=== PATIENT | male | born 1955 | race Caucasian/White ===

== ENCOUNTER 2019-04-15 08:20 | Emergency (ER) | payer SELFPAY ==
[~2019-04-15] VITALS: Ht 177.8 cm; Wt 90.9 kg
[~2019-04-15 08:20] MED LIST: AMLO-147 PO; ASPI-903 PO; ATOR10TA65 PO; GLIP5TAB13 PO; LOSA50TA14 PO; METF100010 PO
[2019-04-15 08:29] VITALS: BP 157/90; PULSE 68; RESP 18; Ht 177.8 cm; Wt 90.9 kg
--- NOTE | 2019-04-15 12:24 | ERD ---
ER Documentation Chief Complaint Chief Complaint chest pain x 1 week, pressure/tightness stabing pain ROS All systems reviewed and are negative except as per history of present illness. Physical Exam Vitals Vital Signs Date Temp Pulse Resp B/P (MAP) Pulse Ox O2 O2 Flow FiO2 Time Delivery Rate 04/15/19 98.2 68 18 157/90 98 08:29 (112) Physical Exam Const: No acute distress Head: Atraumatic Eyes: Normal Conjunctiva ENT: Normal External Ears, Nose and Mouth. Neck: Full range of motion. No meningismus. Resp: Clear to auscultation bilaterally Cardio: Regular rate and rhythm, no murmurs Abd: Soft, non tender, non distended. Normal bowel sounds Skin: No petechiae or rashes Back: No midline or flank tenderness Ext: No cyanosis, or edema Neur: Awake and alert Psych: Normal Mood and Affect SHAW FORD MD Apr 15, 2019 12:24
== END 2019-04-15 12:30 | disposition left against medical advice (07) ==
LOC: E/R 08:20
DX: Z53.21 Procedure and treatment not carried out due to patient leaving prior to being seen by health care provider (principal)
CPT/HCPCS: 93005

== ENCOUNTER 2019-04-16 06:55 | Observation (INO) | payer OTHER ==
[~2019-04-16] VITALS: Ht 190.5 cm; Wt 98.0 kg
[2019-04-16 06:57] VITALS: Ht 190.5 cm; Wt 98.0 kg
[2019-04-16] MEDS ORDERED: ASPIRIN 325 MG TAB PO STA (07:13)
--- NOTE | 2019-04-16 08:08 | ERD ---
ER Documentation Chief Complaint Chief Complaint here yesterday lwbs , c/o same cp HPI 64-year-old male presents the emergency department complaining of chest pain. Patient states that he is been having a nonspecific chest pain for approximately a week now. It seems to be getting worse and worse in severity. He reports the pain is nonspecific, localized in the center part of his chest and associated with no fevers, chills, cough, hemoptysis or sputum production. The pain is nonradiating and nonspecific and described as moderate to severe at this time. ROS All systems reviewed and are negative except as per history of present illness. Allergies Allergies: Coded Allergies: No Known Allergy (Unverified , 04/16/19) PMhx/Soc Medical and Surgical Hx: pt denies Surgical Hx Hx Miscellaneous Medical Probl: Yes (HTN, DM, HIGH CHOLESTEROL) Hx Alcohol Use: No Hx Substance Use: No Hx Tobacco Use: No Smoking Status: Never smoker FmHx Family history of diabetes, no obvious family history of heart disease Physical Exam Vitals Vital Signs Date Temp Pulse Resp B/P (MAP) Pulse Ox O2 O2 Flow FiO2 Time Delivery Rate 04/16/19 Nasal 2 07:25 Cannula 04/16/19 98.1 67 18 157/96 99 06:57 (116) Physical Exam GENERAL: The patient is well developed and appropriate for usual state of health in no apparent distress HEENT: Pupils equal, round, and reactive to light. EOMI. There is no scleral icterus. NECK: C-spine is soft and supple, there is no meningismus. There is no cervical lymphadenopathy. LUNGS: Clear to auscultation bilaterally. There are no rales, wheezes or rhonchi. HEART: Regular rate and rhythm, no murmurs, clicks, rubs or gallops. ABDOMEN: Soft, non-tender, non-distended. There are bowel sounds in all four quadrants. No rebound or guarding. EXTREMITIES: There is no peripheral cyanosis or edema. No focal swelling or erythema. NEURO: The patient moves all four extremities with 5/5 strength. Cranial nerves II - XII are intact. Normal gait. Alert and oriented SKIN: There is no apparent rash or petechiae. HEME/LYMPHATIC: There is no evidence of excessive bruising or lymphedema. PSYCHIATRIC: The patient does not appear anxious or depressed. Result Diagram: 04/16/19 0720 04/16/19 0720 Results 24 hrs Laboratory Tests Test 04/16/19 07:20 White Blood Count 3.4 10^3/ul Red Blood Count 4.45 10^6/ul Hemoglobin 13.6 g/dl Hematocrit 39.3 % Mean Corpuscular Volume 88.3 fl Mean Corpuscular Hemoglobin 30.6 pg Mean Corpuscular Hemoglobin Concent 34.6 g/dl Red Cell Distribution Width 12.0 % Platelet Count 209 10^3/UL Mean Platelet Volume 10.5 fl Immature Granulocytes % 0.600 % Neutrophils % 45.6 % Lymphocytes % 44.2 % Monocytes % 7.8 % Eosinophils % 1.2 % Basophils % 0.6 % Nucleated Red Blood Cells % 0.0 /100WBC Immature Granulocytes # 0.020 10^3/ul Neutrophils # 1.6 10^3/ul Lymphocytes # 1.5 10^3/ul Monocytes # 0.3 10^3/ul Eosinophils # 0.0 10^3/ul Basophils # 0.0 10^3/ul Nucleated Red Blood Cells # 0.0 10^3/ul Sodium Level 135 mmol/L Potassium Level 4.3 mmol/L Chloride Level 102 mmol/L Carbon Dioxide Level 25 mmol/L Anion Gap 8 Blood Urea Nitrogen 10 mg/dl Creatinine 0.72 mg/dl Est Glomerular Filtrat Rate mL/min > 60 mL/min Glucose Level 283 mg/dl Calcium Level 8.8 mg/dl Total Bilirubin 0.4 mg/dl Direct Bilirubin 0.00 mg/dl Indirect Bilirubin 0.4 mg/dl Aspartate Amino Transf (AST/SGOT) 27 IU/L Alanine Aminotransferase (ALT/SGPT) 22 IU/L Alkaline Phosphatase 84 IU/L Troponin I < 0.012 ng/ml Total Protein 7.1 g/dl Albumin 3.9 g/dl Globulin 3.20 g/dl Albumin/Globulin Ratio 1.21 Current Medications Medications Dose Sig/Luis Felipe Start Time Status Last (Trade) Ordered Route PRN Stop Time Admin Dose Reason Admin Aspirin 325 mg ONCE STAT 04/16/19 DC 04/16/19 (Aspirin) PO 07:13 04/16/19 07:23 07:15 Procedures/MDM Patient was taken to a room, seen and evaluated. Comfort measures were initiated. Diagnostic tests were ordered and reviewed. 3 LEAD RHYTHM STRIP: Normal sinus rhythm without ectopy EK lead EKG reviewed by myself: Normal Sinus Rhythm Normal [place] and intervals No ST elevation, depression, or T wave inversion Impression: Normal EKG RADIOLOGY: Reviewed with the radiologist CONSULTATION: Hospitalist was notified for admission REEVALUATION: 08: Initial diagnostic tests were appreciated including troponin and discussed with the patient. Decision was made for observation. MEDICAL DECISION MAKING: Patient presents with chest pain of uncertain etiology. Differential diagnosis considered includes acute myocardial infarction, pulmo nary embolism, as well as vascular and pulmonary concerns. I have reviewed the patients clinical risk factors, EKG, lab studies and imaging. At this time, patient's work-up shows no obvious ischemic changes and a negative troponin, which is reassuring. However, given his multiple risk factors and HEART score, patient will be admitted for further diagnostic evaluation and testing. Departure Diagnosis: Primary Impression: Chest pain Condition: DEEJAY Claros Apr 16, 2019 08:08
[2019-04-16] MEDS ORDERED: ONDANSETRON 4 MG INJ IV PRN ×2 (08:30→09:30)
[2019-04-16] MEDS ORDERED: ACETAMINOPHEN 325 MG TAB PO PRN ×2 (08:30→09:30)
[2019-04-16] MEDS ORDERED: NITROGLYCERIN (SL) 0.4 MG TAB SL PRN (09:30)
[2019-04-16] MEDS ORDERED: DOCUSATE SODIUM 100 MG CAP PO PRN (09:30)
[2019-04-16] MEDS ORDERED: NACL 0.9% 3 ML SYG IV SCH (09:30)
[2019-04-16] MEDS ORDERED: morphine 2 MG INJ IV PRN (09:30)
[2019-04-16] MEDS ORDERED: GLUCOSE GEL 15 GRAM TUBE BUCCAL PRN (10:00)
[2019-04-16] MEDS ORDERED: DEXTROSE 50% 50 ML SYRINGE IV PRN ×2 (10:00)
[2019-04-16] MEDS ORDERED: GLUCOSE GEL 15 GRAM TUBE PO PRN ×2 (10:00)
[2019-04-16] MEDS ORDERED: GLUCAGON 1 MG INJ IM PRN (10:00)
[2019-04-16] MEDS: LOSARTAN 50 MG TAB PO SCH (10:05)
[2019-04-16] MEDS: AMLODIPINE 10 MG TAB PO SCH (10:05)
[2019-04-16] MEDS: INSULIN GLARGINE [LANTus] (100 UNITS/ML) SYG SC SCH (11:37)
[2019-04-16] MEDS: INSULIN ASPART [NOVOLOG] 3 ML PEN SC SCH ×5 (11:39→20:46)
--- NOTE | 2019-04-16 11:56 | CONS ---
Assessment/Plan Assessment/Plan Hospital Course (Demo Recall) Chest pain: Likely musculoskeletal by history though no palpable pain. EKG normal and initial trop negative. Doubt cardiac etiology but has CAD risk factors so will evaluate further HTN DM -cardiac CTA. If normal, ok for d/c -f/u echo -continue ASA, lipitor -amlodipine 10mg, losartan 50mg Consultation Date/Type/Reason Admit Date/Time Date of Consultation: Apr 16, 2019 Type of Consult Cardiology Reason for Consultation Chest pain Requesting Provider: OMAIRA MCNEAL NP Date/Time of Note DATE: 04/16/19 TIME: 11:41 Hx of Present Illness 64 yo M with a h/o DM, HTN, who presented with chest pain. He notes that he has been having chest pain for one week straight which he describes as pressure like. The pain is mild and constant and exacerbated only during the motion of sitting from a laying position. Otherwise when he walks or is active he does not have exacerbation. No prior cardiac history. He is generally very active and asymptomatic. He just traveled from [place] and arrived 5 days ago but the symptoms started 1-2 days before he flew here. He does not remember any trauma to his chest or lifting anything heavy at that time but may have been exacerbated by lifting his luggage during his travel. Very mild pinpoint pain right chest wall. per hPI Past Medical History per hPI Home Meds Reported Medications Aspirin* (Aspirin* Chew) 81 Mg Tab.chew, 81 MG PO DAILY, TAB.CHEW 04/16/19 Metformin Hcl* (Metformin Hcl*) 1,000 Mg Tablet, 1000 MG PO BID 04/16/19 Losartan Potassium* (Losartan Potassium*) 50 Mg Tablet, 50 MG PO DAILY, TAB 04/16/19 Amlodipine Besylate* (Amlodipine Besylate*) 10 Mg Tablet, 10 MG PO DAILY 04/16/19 Medications Current Medications Ondansetron HCl (Zofran Inj) 4 mg ER BRIDGE PRN IV NAUSEA/VOMITING; Start 04/16/19 at 08:30; Stop 04/17/19 at 08:29 Acetaminophen (Tylenol Tab) 650 mg ER BRIDGE PRN PO .MILD PAIN 1-3 OR TEMP; Sta rt 04/16/19 at 08:30; Stop 04/17/19 at 08:29 Amlodipine Besylate (Norvasc) 10 mg DAILY PO Last administered on 04/16/19at 10:05; Admin Dose 10 MG; Start 04/16/19 at 09:30 Aspirin (Aspirin) 81 mg DAILY PO ; Start 04/17/19 at 09:00 Losartan Potassium (Cozaar) 50 mg DAILY PO Last administered on 04/16/19at 10:05; Admin Dose 50 MG; Start 04/16/19 at 09:30 IV Flush (NS 3 ml) 3 ml PER PROTOCOL IV ; Start 04/16/19 at 09:30 Ondansetron HCl (Zofran Inj) 4 mg Q6H PRN IV NAUSEA/VOMITING; Start 04/16/19 at 09:30 Acetaminophen (Tylenol Tab) 650 mg Q6H PRN PO .PAIN 1-3 OR TEMP; Start 04/16/19 at 09:30 Morphine Sulfate (morphine) 2 mg Q4H PRN IV .SEVERE PAIN 7-10; Start 04/16/19 at 09:30 Docusate Sodium (Colace) 100 mg Q12H PRN PO .CONSTIPATION; Start 04/16/19 at 09:30 Diagnostic Test (Pha) (Accu-Chek) 1 ea 02 XX ; Start 04/17/19 at 02:00 Insulin Glargine (Lantus) 15 units DAILY@0800 SC ; Start 04/16/19 at 11:00 Insulin Aspart (Novolog Insulin Pen) 5 unit WITH MEALS SC ; Start 04/16/19 at 12:00 Insulin Aspart (Novolog Insulin Pen) NOVOLOG *MILD* ALGORITHM WITH MEALS BEDTIME SC ; Start 04/16/19 at 12:00 Atorvastatin Calcium (Lipitor) 80 mg HS PO ; Start 04/16/19 at 21:00 Nitroglycerin (Nitroglycerin (Sl Tab) 0.4 Mg) 1 tab Q5M PRN SL ANGINA; Start 04/16/19 at 09:30 Miscellaneous Information 1 ea NOTE XX ; Start 04/16/19 at 10:00 Glucose (Glutose) 15 gm Q15M PRN PO DECREASED GLUCOSE; Start 04/16/19 at 10:00 Glucose (Glutose) 22.5 gm Q15M PRN PO DECREASED GLUCOSE; Start 04/16/19 at 10:00 Dextrose (D50w Syringe) 25 ml Q15M PRN IV DECREASED GLUCOSE; Start 04/16/19 at 10:00 Dextrose (D50w Syringe) 50 ml Q15M PRN IV DECREASED GLUCOSE; Start 04/16/19 at 10:00 Glucagon (Glucagen) 1 mg Q15M PRN IM DECREASED GLUCOSE; Start 04/16/19 at 10:00 Glucose (Glutose) 15 gm Q15M PRN BUCCAL DECREASED GLUCOSE; Start 04/16/19 at 10:00 Allergies: Coded Allergies: No Known Allergy (Unverified , 04/16/19) Social History Smoking Status: Never smoker Exam/Review of Systems Vital Signs Vitals Vital Signs Date Temp Pulse Resp B/P (MAP) Pulse Ox O2 O2 Flow FiO2 Time Delivery Rate 04/16/19 56 18 157/92 99 Room Air 09:17 (113) 04/16/19 2 07:25 04/16/19 98.1 06:57 Exam Constitutional: alert, oriented Psych: no complaints, nl mood/affect Neck: supple; No jvd Respiratory: clear to auscultation; No crackles/rales Cardiovascular: regular rate and rhythm; No edema, No systolic murmur Gastrointestinal: soft, non-tender Neurological: nl mental status, nl speech Additional Comments EKG: sinus bradycardia, PAC, no ST changes Labs Result Diagram: 04/16/19 0720 04/16/19 0720 Results 24hrs Laboratory Tests Test 04/16/19 07:20 04/16/19 10:38 04/16/19 11:08 White Blood Count 3.4 L Red Blood Count 4.45 L Hemoglobin 13.6 L Hematocrit 39.3 L Mean Corpuscular Volume 88.3 Mean Corpuscular Hemoglobin 30.6 Mean Corpuscular Hemoglobin Concent 34.6 Red Cell Distribution Width 12.0 Platelet Count 209 Mean Platelet Volume 10.5 H Immature Granulocytes % 0.600 H Neutrophils % 45.6 Lymphocytes % 44.2 Monocytes % 7.8 Eosinophils % 1.2 Basophils % 0.6 Nucleated Red Blood Cells % 0.0 Immature Granulocytes # 0.020 Neutrophils # 1.6 Lymphocytes # 1.5 Monocytes # 0.3 Eosinophils # 0.0 Basophils # 0.0 Nucleated Red Blood Cells # 0.0 Sodium Level 135 Potassium Level 4.3 Chloride Level 102 Carbon Dioxide Level 25 Anion Gap 8 Blood Urea Nitrogen 10 Creatinine 0.72 Est Glomerular Filtrat Rate mL/min > 60 Glucose Level 283 H Calcium Level 8.8 Total Bilirubin 0.4 Direct Bilirubin 0.00 Indirect Bilirubin 0.4 Aspartate Amino Transf (AST/SGOT) 27 Alanine Aminotransferase (ALT/SGPT) 22 Alkaline Phosphatase 84 Troponin I < 0.012 Total Protein 7.1 Albumin 3.9 Globulin 3.20 Albumin/Globulin Ratio 1.21 Hemoglobin A1c 9.7 H Triglycerides Level 81 Cholesterol Level 166 LDL Cholesterol, Calculated 111 HDL Cholesterol 39 Cholesterol/HDL Ratio 4.2 Thyroid Stimulating Hormone (TSH) Pending Bedside Glucose 238 H Medications Medications Current Medications Ondansetron HCl (Zofran Inj) 4 mg ER BRIDGE PRN IV NAUSEA/VOMITING; Start 04/16/19 at 08:30; Stop 04/17/19 at 08:29 Acetaminophen (Tylenol Tab) 650 mg ER BRIDGE PRN PO .MILD PAIN 1-3 OR TEMP; Start 04/16/19 at 08:30; Stop 04/17/19 at 08:29 Amlodipine Besylate (Norvasc) 10 mg DAILY PO Last administered on 04/16/19at 10:05; Admin Dose 10 MG; Start 04/16/19 at 09:30 Aspirin (Aspirin) 81 mg DAILY PO ; Start 04/17/19 at 09:00 Losartan Potassium (Cozaar) 50 mg DAILY PO Last administered on 04/16/19at 10:05; Admin Dose 50 MG; Start 04/16/19 at 09:30 IV Flush (NS 3 ml) 3 ml PER PROTOCOL IV ; Start 04/16/19 at 09:30 Ondansetron HCl (Zofran Inj) 4 mg Q6H PRN IV NAUSEA/VOMITING; Start 04/16/19 at 09:30 Acetaminophen (Tylenol Tab) 650 mg Q6H PRN PO .PAIN 1-3 OR TEMP; Start 04/16/19 at 09:30 Morphine Sulfate (morphine) 2 mg Q4H PRN IV .SEVERE PAIN 7-10; Start 04/16/19 at 09:30 Docusate Sodium (Colace) 100 mg Q12H PRN PO .CONSTIPATION; Start 04/16/19 at 09:30 Diagnostic Test (Pha) (Accu-Chek) 1 ea 02 XX ; Start 04/17/19 at 02:00 Insulin Glargine (Lantus) 15 units DAILY@0800 SC ; Start 04/16/19 at 11:00 Insulin Aspart (Novolog Insulin Pen) 5 unit WITH MEALS SC ; Start 04/16/19 at 12:00 Insulin Aspart (Novolog Insulin Pen) NOVOLOG *MILD* ALGORITHM WITH MEALS BEDTIME SC ; Start 04/16/19 at 12:00 Atorvastatin Calcium (Lipitor) 80 mg HS PO ; Start 04/16/19 at 21:00 Nitroglycerin (Nitroglycerin (Sl Tab) 0.4 Mg) 1 tab Q5M PRN SL ANGINA; Start 04/16/19 at 09:30 Miscellaneous Information 1 ea NOTE XX ; Start 04/16/19 at 10:00 Glucose (Glutose) 15 gm Q15M PRN PO DECREASED GLUCOSE; Start 04/16/19 at 10:00 Glucose (Glutose) 22.5 gm Q15M PRN PO DECREASED GLUCOSE; Start 04/16/19 at 10:00 Dextrose (D50w Syringe) 25 ml Q15M PRN IV DECREASED GLUCOSE; Start 04/16/19 at 10:00 Dextrose (D50w Syringe) 50 ml Q15M PRN IV DECREASED GLUCOSE; Start 04/16/19 at 10:00 Glucagon (Glucagen) 1 mg Q15M PRN IM DECREASED GLUCOSE; Start 04/16/19 at 10:00 Glucose (Glutose) 15 gm Q15M PRN BUCCAL DECREASED GLUCOSE; Start 04/16/19 at 10:00 VASILIY LAWS Apr 16, 2019 11:53
--- NOTE | 2019-04-16 12:09 | RADRPT ---
Echocardiogram Report Patient Name: Bhavin LINARES ID: [id number] : 1955 (64y 1m)Study Date: 04/16/2019 9:31:51 AM Gender: [place] #: [id number] Tech: Akbar Muhammad [facility] Location: [facility] Ref.Physician: OMAIRA MCNEAL Height(Cm): BSA: Weight(Kg): Quality: AdequateOrder Physician: OMAIRA MCNEAL Account #: Procedures: Echocardiographic Report: Transthoracic echocardiogram with complete 2D, M-Mode, and doppler examination. Indications: Chest Pain. Measurements: 2D/M Mode Doppler Measurement Value Normal Range Measurement Value Normal Range LVIDd 2D 4.3 [ 4.2 - 5.8 ] cm AV Peak Doug 1.1 [ 100.0 - 170.0 ] cm/sec LVIDs 2D 2.9 [ 2.5 - 4.0 ] cm AV Peak PG 5.0 [ 2.0 - 9.0 ] mmHg LVPWd 2D 0.9 [ 0.6 - 1.0 ] cm LVOT Peak Doug 0.8 [ 70.0 - 110.0 ] cm/sec IVSd 2D 1.4 [ 0.6 - 1.0 ] cm LVOT Peak PG 2.0 [ 2.0 - 6.0 ] mmHg AoR Diam 2D 2.6 [ 2.6 - 3.4 ] cm MV E Peak Doug 0.5 [ 60.0 - 130.0 ] cm/sec EDV 2D 82.2 [ 62.0 - 150.0 ] ml MV A Peak Doug 0.7 [ 100.0 - 120.0 ] cm/sec ESV 2D 32.8 [ 21.0 - 61.0 ] ml MV E/A 0.7 [ 0.8 - 1.5 ] ratio EF 2D 60.1 [ 52.0 - 72.0 ] percent MV Decel Time 246 [ 104 - 258 ] msec LA Dimen 2D 3.8 [ 3.0 - 4.0 ] cm Lat E` Doug 0.1 [ 10.0 - 15.0 ] cm/sec Lateral E/E` 5.5 [ 1.0 - 2.0 ] ratio Med E` Doug 0.1 cm/sec MV E/A 0.7 [ 0.8 - 1.5 ] ratio TR Peak Doug 2.1 [ 100.0 - 280.0 ] cm/sec TR Peak PG 17.0 mmHg RVSP 20.0 [ 10.0 - 36.0 ] mmHg Findings: Left Ventricle: Normal left ventricular systolic function. Normal left ventricular cavity size. Sigmoid septum. Ejection fraction is visually estimated at 60 %. Tissue Doppler/Mitral Doppler indices are consistent with impaired relaxation (Stage I diastolic dysfunction). Right Ventricle: Right ventricle not well visualized but possibly enlarged in limited views. Left Atrium: There is mild enlargement of left atrium. Right Atrium: The right atrium is normal in size. Mitral Valve: Normal appearance of the mitral valve. Normal appearance and function of the mitral valve with trace physiologic regurgitation. Aortic Valve: No significant aortic stenosis or insufficiency. Tricuspid Valve: Normal appearance of the tricuspid valve. The estimated Peak RVSP is 20 mmHg. There is trace tricuspid regurgitation. Pericardium: Normal pericardium with no significant pericardial effusion. Aorta: Normal aortic root. IVC: Normal size and normal respiratory collapse consistent with normal right atrial pressure. Conclusions: Technically difficult study with poor endocardial visualization. Normal left ventricular systolic function. Normal left ventricular cavity size. Sigmoid septum. Ejection fraction is visually estimated at 60 %. Tissue Doppler/Mitral Doppler indices are consistent with impaired relaxation (Stage I diastolic dysfunction). Right ventricle not well visualized but possibly enlarged in limited views. No significant valvular stenosis or regurgitation seen. The estimated Peak RVSP is 20 mmHg. Normal size and normal respiratory collapse consistent with normal right atrial pressure. Electronically Signed By: Javier Hwang 2019-04-16 12:08:16 PDT
[2019-04-16] MEDS ORDERED: SOD CHLORIDE 0.9% 100 ML ONE (12:58)
[2019-04-16] MEDS ORDERED: IOHEXOL 100 ML ONE (12:58)
--- NOTE | 2019-04-16 14:03 | HP ---
Date/Time of Note Date/Time of Note DATE: 04/16/19 TIME: 13:48 Assessment/Plan VTE Prophylaxis SCD applied (from Nsg): Yes Pharmacological prophylaxis: NA/contraindicated Pharm contraindication: low risk/ambulating Lines/Catheters IV Catheter Type (from Nrsg): Saline Lock Assessment/Plan Hospital Course SUBJECTIVE: Lying in bed, no further chest pain reported. OBJECTIVE: Vital signs-see below PHYSICAL EXAM: Constitutional: Adequately built,not in acute distress. HEENT: Head atraumatic and normocephalic. Eyes: Extraocular muscles intact. Anicteric sclerae. Pupils equal bilaterally, reactive to light. NECK: Supple without lymph node. CHEST: Clear and good breath sounds equally. No wheezing. No rhonchi. HEART: S1, S2. Regular rate and rhythm. ABDOMEN: Soft/non tender with no rebound tenderness. Bowel sounds were present. EXTREMITIES: No cyanosis, clubbing or edema. NEUROLOGIC: Alert and oriented x3. No focal deficit. No sensory deficit. PSYCHOSOCIAL: No signs of depression. INTEGUMENTARY: No open wounds. ASSESSMENT AND PLAN:64 yo M w/HTN,DM2 admitted with bilateral lower chest wall pain x7-day duration... Chest pain, rule out ACS -Cardiology consultation -Aspirin/statin prophylaxis -PRN NTG/morphine -Serial troponin, EKG and 2D echocardiogram HTN -Resume home medications DMII -Hyperglycemia noted. Will start basal/bolus insulin -A1c Anemia, likely chronic -H&H stable DVT prophylaxis: SCDs PUD prophylaxis: Protonix Rest of the management depend on hospital course. Approximately 60 m spent on this history and physical. Patient was seen in collaboration with Dr. Quintanilla. Result Diagram: 04/16/19 0720 04/16/19 0720 Results 24hrs Laboratory Tests Test 04/16/19 07:20 04/16/19 10:38 04/16/19 11:08 White Blood Count 3.4 L Red Blood Count 4.45 L Hemoglobin 13.6 L Hematocrit 39.3 L Mean Corpuscular Volume 88.3 Mean Corpuscular Hemoglobin 30.6 Mean Corpuscular Hemoglobin Concent 34.6 Red Cell Distribution Width 12.0 Platelet Count 209 Mean Platelet Volume 10.5 H Immature Granulocytes % 0.600 H Neutrophils % 45.6 Lymphocytes % 44.2 Monocytes % 7.8 Eosinophils % 1.2 Basophils % 0.6 Nucleated Red Blood Cells % 0.0 Immature Granulocytes # 0.020 Neutrophils # 1.6 Lymphocytes # 1.5 Monocytes # 0.3 Eosinophils # 0.0 Basophils # 0.0 Nucleated Red Blood Cells # 0.0 Sodium Level 135 Potassium Level 4.3 Chloride Level 102 Carbon Dioxide Level 25 Anion Gap 8 Blood Urea Nitrogen 10 Creatinine 0.72 Est Glomerular Filtrat Rate mL/min > 60 Glucose Level 283 H Calcium Level 8.8 Total Bilirubin 0.4 Direct Bilirubin 0.00 Indirect Bilirubin 0.4 Aspartate Amino Transf (AST/SGOT) 27 Alanine Aminotransferase (ALT/SGPT) 22 Alkaline Phosphatase 84 Troponin I < 0.012 Total Protein 7.1 Albumin 3.9 Globulin 3.20 Albumin/Globulin Ratio 1.21 Hemoglobin A1c 9.7 H Triglycerides Level 81 Cholesterol Level 166 LDL Cholesterol, Calculated 111 HDL Cholesterol 39 Cholesterol/HDL Ratio 4.2 Vitamin D 1,25-Dihydroxy 33.7 Thyroid Stimulating Hormone (TSH) 1.080 Bedside Glucose 238 H HPI/ROS Admit Date/Time Admit Date/Time Hx of Present Illness This is a 64-year-old male with a history of diabetes, hypertension, presented to the emergency room with bilateral lower chest wall pain x7-day duration. Patient pain get worse with position change movement but not with walking or other activities. Patient denied palpitation, nausea, vomiting, diaphoresis, a bdominal pain, numbness, tingling, dizziness, loss of consciousness, fever, chills, diarrhea or other constitutional symptoms. In the emergency room, patient's labs unremarkable except for elevated blood sugar 283. Initial troponin negative. Twelve-lead EKG negative for acute ST/T wave changes. Patient was given aspirin 325 mg in the emergency room. ROS A 12 point review of system was assessed and is negative other than what is mentioned in the HPI. PMH/Family/Social Past Medical History See HPI Medications Current Medications Amlodipine Besylate (Norvasc) 10 mg DAILY PO Last administered on 04/16/19at 10:05; Admin Dose 10 MG; Start 04/16/19 at 09:30 Aspirin (Aspirin) 81 mg DAILY PO ; Start 04/17/19 at 09:00 Losartan Potassium (Cozaar) 50 mg DAILY PO Last administered on 04/16/19at 10:05; Admin Dose 50 MG; Start 04/16/19 at 09:30 IV Flush (NS 3 ml) 3 ml PER PROTOCOL IV ; Start 04/16/19 at 09:30 Ondansetron HCl (Zofran Inj) 4 mg Q6H PRN IV NAUSEA/VOMITING; Start 04/16/19 at 09:30 Acetaminophen (Tylenol Tab) 650 mg Q6H PRN PO .PAIN 1-3 OR TEMP; Start 04/16/19 at 09:30 Morphine Sulfate (morphine) 2 mg Q4H PRN IV .SEVERE PAIN 7-10; Start 04/16/19 at 09:30 Docusate Sodium (Colace) 100 mg Q12H PRN PO .CONSTIPATION; Start 04/16/19 at 09:30 Diagnostic Test (Pha) (Accu-Chek) 1 ea 02 XX ; Start 04/17/19 at 02:00 Insulin Glargine (Lantus) 15 units DAILY@0800 SC Last administered on 04/16/19at 11:37; Admin Dose 15 UNITS; Start 04/16/19 at 11:00 Insulin Aspart (Novolog Insulin Pen) 5 unit WITH MEALS SC Last administered on 04/16/19at 11:39; Admin Dose 5 UNIT; Start 04/16/19 at 12:00 Insulin Aspart (Novolog Insulin Pen) NOVOLOG *MILD* ALGORITHM WITH MEALS BEDTIME SC Last administered on 04/16/19at 11:41; Admin Dose 4 UNIT; Start 04/16/19 at 12:00 Atorvastatin Calcium (Lipitor) 80 mg HS PO ; Start 04/16/19 at 21:00 Nitroglycerin (Nitroglycerin (Sl Tab) 0.4 Mg) 1 tab Q5M PRN SL ANGINA; Start 04/16/19 at 09:30 Miscellaneous Information 1 ea NOTE XX ; Start 04/16/19 at 10:00 Glucose (Glutose) 15 gm Q15M PRN PO DECREASED GLUCOSE; Start 04/16/19 at 10:00 Glucose (Glutose) 22.5 gm Q15M PRN PO DECREASED GLUCOSE; Start 04/16/19 at 10:00 Dextrose (D50w Syringe) 25 ml Q15M PRN IV DECREASED GLUCOSE; Start 04/16/19 at 10:00 Dextrose (D50w Syringe) 50 ml Q15M PRN IV DECREASED GLUCOSE; Start 04/16/19 at 10:00 Glucagon (Glucagen) 1 mg Q15M PRN IM DECREASED GLUCOSE; Start 04/16/19 at 10:00 Glucose (Glutose) 15 gm Q15M PRN BUCCAL DECREASED GLUCOSE; Start 04/16/19 at 10:00 Coded Allergies: iodine (Verified Allergy, Unknown, DIFF BREATHING, 04/16/19) Past Surgical History Noncontributory Social History Denied history of alcohol, smoking or illicit drug use. Smoking Status: Never smoker Exam/Review of Systems Vital Signs Vitals Vital Signs Date Temp Pulse Resp B/P (MAP) Pulse Ox O2 O2 Flow FiO2 Time Delivery Rate 04/16/19 55 18 138/82 99 Room Air 12:30 (100) 04/16/19 2 07:25 04/16/19 98.1 06:57 OMAIRA MCNEAL NP Apr 16, 2019 14:01
[2019-04-16 14:37] VITALS: BP 138/81; PULSE 58; RESP 18
[2019-04-16] MEDS ORDERED: REGADENOSON 0.4 MG/5 ML SYG ONE (15:34)
[2019-04-16 19:33] VITALS: BP 149/72; PULSE 67; RESP 18
[2019-04-16] MEDS ORDERED: ACCU-CHEK XX ONE (21:00)
[2019-04-16] MEDS ORDERED: ATORVASTATIN 80 MG TAB PO SCH (21:00)
[2019-04-16] MEDS ORDERED: INSULIN ASPART [NOVOLOG] 3 ML PEN SC ONE (21:00)
[2019-04-17] VITALS: BP 126/70; PULSE 66; RESP 18
[2019-04-17] MEDS ORDERED: ACCU-CHEK XX SCH (02:00)
[2019-04-17 04:00] VITALS: BP 123/72; PULSE 69; RESP 18
[2019-04-17 07:14] VITALS: BP 131/81; PULSE 59; RESP 22
[2019-04-17] MEDS ORDERED: ASPIRIN 81 MG TAB ONE (07:39)
[2019-04-17] MEDS: LOSARTAN 50 MG TAB PO SCH (07:52)
[2019-04-17] MEDS: AMLODIPINE 10 MG TAB PO SCH (07:52)
[2019-04-17] MEDS: INSULIN ASPART [NOVOLOG] 3 ML PEN SC SCH ×2 (07:57)
[2019-04-17] MEDS: INSULIN GLARGINE [LANTus] (100 UNITS/ML) SYG SC SCH (07:57)
--- NOTE | 2019-04-17 08:27 | CONS ---
Assessment/Plan Assessment/Plan Hospital Course (Demo Recall) Chest pain: Likely musculoskeletal by history though no palpable pain. EKG normal trops negative. Echo with normal EF. Doubt cardiac etiology. MPI showed no ischemia (small nonreversible inferior defect which is likely artifact) HTN DM -ok for d/c -continue ASA, lipitor -amlodipine 10mg, losartan 50mg Consultation Date/Type/Reason Admit Date/Time Apr 16, 2019 at 08:17 Initial Consult Date 04/16/19 Type of Consult Cardiology Requesting Provider: OMAIRA MCNEAL NP Date/Time of Note DATE: 04/17/19 TIME: 08:25 24 HR Interval Summary Free Text/Dictation No chest pain. No complaints. No ischemia by MPI Exam/Review of Systems Vital Signs Vitals Vital Signs Date Temp Pulse Resp B/P (MAP) Pulse Ox O2 O2 Flow FiO2 Time Delivery Rate 04/17/19 98.0 59 22 131/81 99 07:14 (98) 04/17/19 Room Air 04:00 04/16/19 2 07:25 Intake and Output 04/16/19 04/16/19 04/17/19 1515:00 23:00 07:00 IntakeIntake Total 780 ml 480 ml BalanceBalance 780 ml 480 ml Exam Constitutional: alert, oriented Psych: no complaints, nl mood/affect Head: normocephalic, atraumatic Neck: supple; No jvd Respiratory: clear to auscultation; No crackles/rales Cardiovascular: regular rate and rhythm; No edema, No systolic murmur Gastrointestinal: soft, non-tender; No distended Neurological: nl mental status, nl speech Labs Result Diagram: 04/17/19 0508 04/17/19 0508 Results 24hrs Laboratory Tests Test 04/16/19 10:38 04/16/19 11:08 04/16/19 14:09 04/16/19 14:38 Hemoglobin A1c 9.7 H Triglycerides Level 81 Cholesterol Level 166 LDL Cholesterol, 111 Calculated HDL Cholesterol 39 Cholesterol/HDL Ratio 4.2 Vitamin D 1,25-Dihydroxy 33.7 Thyroid Stimulating 1.080 Hormone (TSH) Bedside Glucose 238 H 124 Creatine Kinase 51 Creatine Kinase Index 0.5 Creatinine Kinase MB 0.26 (Mass) Troponin I < 0.012 Test 04/16/19 16:44 04/16/19 20:28 04/16/19 23:56 04/17/19 05:08 Bedside Glucose 111 369 H 223 H White Blood Count 4.4 #L Red Blood Count 4.48 L Hemoglobin 13.4 L Hematocrit 40.6 L Mean Corpuscular Volume 90.6 Mean Corpuscular 29.9 Hemoglobin Mean Corpuscular 33.0 Hemoglobin Concent Red Cell Distribution 12.6 Width Platelet Count 204 Mean Platelet Volume 11.1 H Immature Granulocytes % 0.500 H Neutrophils % 50.6 Lymphocytes % 40.7 Monocytes % 6.8 Eosinophils % 0.9 Basophils % 0.5 Nucleated Red Blood 0.0 Cells % Immature Granulocytes # 0.020 Neutrophils # 2.2 Lymphocytes # 1.8 Monocytes # 0.3 Eosinophils # 0.0 Basophils # 0.0 Nucleated Red Blood 0.0 Cells # Sodium Level 134 L Potassium Level 4.3 Chloride Level 101 Carbon Dioxide Level 29 Anion Gap 4 L Blood Urea Nitrogen 15 Creatinine 0.90 Est Glomerular Filtrat > 60 Rate mL/min Glucose Level 269 H Calcium Level 9.2 Phosphorus Level 4.0 Magnesium Level 1.9 Total Bilirubin 0.3 Direct Bilirubin 0.00 Indirect Bilirubin 0.3 Aspartate Amino 22 Transf (AST/SGOT) Alanine 26 Aminotransferase (ALT/SG PT) Alkaline Phosphatase 84 Total Protein 6.5 Albumin 3.6 Globulin 2.90 Albumin/Globulin Ratio 1.24 Test 04/17/19 07:43 Bedside Glucose 283 H Medications Medications Current Medications Amlodipine Besylate (Norvasc) 10 mg DAILY PO Last administered on 04/17/19 07:52; Admin Dose 10 MG; Start 04/16/19 at 09:30 Aspirin (Aspirin) 81 mg DAILY PO Last administered on 04/17/19at 07:51; Admin Dose 81 MG; Start 04/17/19 at 09:00 Losartan Potassium (Cozaar) 50 mg DAILY PO Last administered on 04/17/19 07:52; Admin Dose 50 MG; Start 04/16/19 at 09:30 IV Flush (NS 3 ml) 3 ml PER PROTOCOL IV ; Start 04/16/19 at 09:30 Ondansetron HCl (Zofran Inj) 4 mg Q6H PRN IV NAUSEA/VOMITING; Start 04/16/19 at 09:30 Acetaminophen (Tylenol Tab) 650 mg Q6H PRN PO .PAIN 1-3 OR TEMP; Start 04/16/19 at 09:30 Morphine Sulfate (morphine) 2 mg Q4H PRN IV .SEVERE PAIN 7-10; Start 04/16/19 at 09:30 Docusate Sodium (Colace) 100 mg Q12H PRN PO .CONSTIPATION; Start 04/16/19 at 09:30 Diagnostic Test (Pha) (Accu-Chek) 1 ea 02 XX ; Start 04/17/19 at 02:00 Insulin Glargine (Lantus) 15 units DAILY@0800 SC Last administered on 04/17/19at 07:57; Admin Dose 15 UNITS; Start 04/16/19 at 11:00 Insulin Aspart (Novolog Insulin Pen) 5 unit WITH MEALS SC Last administered on 04/17/19at 07:57; Admin Dose 5 UNIT; Start 04/16/19 at 12:00 Insulin Aspart (Novolog Insulin Pen) NOVOLOG *MILD* ALGORITHM WITH MEALS BEDTIME SC Last administered on 04/17/19at 07:57; Admin Dose 4 UNIT; Start 04/16/19 at 12:00 Atorvastatin Calcium (Lipitor) 80 mg HS PO Last administered on 04/16/19at 20:39; Admin Dose 80 MG; Start 04/16/19 at 21:00 Nitroglycerin (Nitroglycerin (Sl Tab) 0.4 Mg) 1 tab Q5M PRN SL ANGINA; Start 04/16/19 at 09:30 Miscellaneous Information 1 ea NOTE XX ; Start 04/16/19 at 10:00 Glucose (Glutose) 15 gm Q15M PRN PO DECREASED GLUCOSE; Start 04/16/19 at 10:00 Glucose (Glutose) 22.5 gm Q15M PRN PO DECREASED GLUCOSE; Start 04/16/19 at 10:00 Dextrose (D50w Syringe) 25 ml Q15M PRN IV DECREASED GLUCOSE; Start 04/16/19 at 10:00 Dextrose (D50w Syringe) 50 ml Q15M PRN IV DECREASED GLUCOSE; Start 04/16/19 at 10:00 Glucagon (Glucagen) 1 mg Q15M PRN IM DECREASED GLUCOSE; Start 04/16/19 at 10:00 Glucose (Glutose) 15 gm Q15M PRN BUCCAL DECREASED GLUCOSE; Start 04/16/19 at 10:00 VASILIY LAWS Apr 17, 2019 08:27
[2019-04-17] MEDS ORDERED: ASPIRIN 81 MG TAB PO SCH (09:00)
--- NOTE | 2019-04-17 09:07 | PDOCDIS ---
Discharge Instructions CONDITION [id number] Patient Condition: [id number] Stable HOME CARE INSTRUCTIONS: [id number] Your diet recommendation is: [id number] CARBOHYDRATE-CONTROLLED,LOW CHOLESTEROL FOLLOW UP/APPOINTMENTS Follow-up Plan 1.YOU HAVE RECEIVED A MEDICAL TREATMENT AT [facility] AND YOUR CONDITION IS STABLE AND CAN BE FOLLOWED UP OUTPATIENT. FURTHER FOLLOW-UPS CAN WAIT UNTIL YOU ARE SEEN IN YOUR DOCTORS OFFICE WITHIN THE NEXT 1-2 DAYS. IT IS YOUR RESPONSIBILITY TO MAKE AN APPOINTMENT FOR FOLOW-UP CARE. IF YOU HAVE A PRIMARY DOCTOR --you should call your primary doctor in 1-2 days and schedule an appointment IF YOU DO NOT HAVE A PRIMARY DOCTOR YOU CAN CALL OUR PHYSICIAN REFERRAL HOTLINE AT IF YOU CAN NOT AFFORD TO SEE A PHYSICIAN YOU CAN CHOSE FROM THE FOLLOWING [facility] CLINICS [facility] [address] [facility] [address] [facility] [address] [facility] [address] [facility] [address] [facility]. [facility]. [address]. Call 911 or go to the nearest emergency room if experiencing loss of consciousness, dizziness, chest pain, shortness of breath, vomiting/abdominal pain, speech difficulties, motor weakness or any unusual symptoms. OMAIRA MCNEAL NP Apr 17, 2019 09:07
--- NOTE | 2019-04-17 09:19 | DS ---
Date/Time of Note Date/Time of Note DATE: 04/17/19 TIME: 09:16 Discharge Summary Admission/Discharge Info Admit Date/Time Apr 16, 2019 at 08:17 Discharge Date/Time Discharge Diagnosis Chest pain, likely musculoskeletal.resolved. acs ruled out HTN DMII Anemia, likely chronic Dyslipidemia Patient Condition: Stable Consults Procedures PROCEDURE: Lexiscan myocardial perfusion study 04/16/19 IMPRESSION: 1. No evidence of perfusion defects. 2. No wall motion abnormalities. 3. The left ventricle ejection fraction at stress is 54%. A call report was made to Dr. Hwnag at 04:38 p.m. on April 16, 2019 Echocardiogram Report- 04/16/19 Conclusions: Technically difficult study with poor endocardial visualization. Normal left ventricular systolic function. Normal left ventricular cavity size. Sigmoid septum. Ejection fraction is visually estimated at 60 %. Tissue Doppler/Mitral Doppler indices are consistent with impaired relaxation (Stage I diastolic dysfunction). Right ventricle not well visualized but possibly enlarged in limited views. No significant valvular stenosis or regurgitation seen. The estimated Peak RVSP is 20 mmHg. Normal size and normal respiratory collapse consistent with normal right atrial pressure. Electronically Signed By: Javier Hwang 2019-04-16 12:08:16 PDT Hx of Present Illness This is a 64-year-old male with a history of diabetes, hypertension, presented to the emergency room with bilateral lower chest wall pain x7-day duration. Patient pain get worse with position change movement but not with walking or other activities. Patient denied palpitation, nausea, vomiting, diaphoresis, abdominal pain, numbness, tingling, dizziness, loss of consciousness, fever, chills, diarrhea or other constitutional symptoms. In the emergency room, patient's labs unremarkable except for elevated blood sugar 283. Initial troponin negative. Twelve-lead EKG negative for acute ST/T wave changes. Patient was given aspirin 325 mg in the emergency room. Hospital Course 64 yo M w/HTN,DM2 admitted with bilateral lower chest wall pain x7-day duration... On exam, patient has quite localized and reproducible pain with palpation of c hest wall, so most likely this is a musculoskeletal pain in origin.Troponins and EKG are negative for acute PA and the duration of her symptoms are not consistent with angina or ACS. No respiratory symptoms and low wells score to suggest PE . Patient also underwent Lexiscan myocardial perfusion study negative for reversible ischemia. He was continued on home meds for underlying comorbidities. Patient noted w/poorly managed DMII, diet changes advised., Insulin administered. Recommended addition of second oral agent w/Glipizide for oupt w/metformin.Patient already has a glucometer at home. Patient is eager to be dcd.His labs and vs stable. No further cp. Cardiology cleared for dc. Patient to f/u w/PCP. Approximately 60mins spent on coordinating this DC. Patient was seen in collaboration w/. Home Meds Active Scripts Glipizide* (Glipizide*) 5 Mg Tablet, 2.5 MG PO AC BREAKFAST, #30 TAB Prov:MCNEALOMAIRANICOLLE Reilly BUSINESS INTELLIGENCE MANAGER 04/17/19 Reported Medications Aspirin* (Aspirin* Chew) 81 Mg Tab.chew, 81 MG PO DAILY, TAB.CHEW 04/16/19 Metformin Hcl* (Metformin Hcl*) 1,000 Mg Tablet, 1000 MG PO BID 04/16/19 Losartan Potassium* (Losartan Potassium*) 50 Mg Tablet, 50 MG PO DAILY, TAB 04/16/19 Amlodipine Besylate* (Amlodipine Besylate*) 10 Mg Tablet, 10 MG PO DAILY 04/16/19 Follow-up Plan 1.YOU HAVE RECEIVED A MEDICAL TREATMENT AT [facility] AND YOUR CONDITION IS STABLE AND CAN BE FOLLOWED UP OUTPATIENT. FURTHER FOLLOW-UPS CAN WAIT UNTIL YOU ARE SEEN IN YOUR DOCTORS OFFICE WITHIN THE NEXT 1-2 DAYS. IT IS YOUR RESPONSIBILITY TO MAKE AN APPOINTMENT FOR FOLOW-UP CARE. IF YOU HAVE A PRIMARY DOCTOR --you should call your primary doctor in 1-2 days and schedule an appointment IF YOU DO NOT HAVE A PRIMARY DOCTOR YOU CAN CALL OUR PHYSICIAN REFERRAL HOTLINE AT IF YOU CAN NOT AFFORD TO SEE A PHYSICIAN YOU CAN CHOSE FROM THE FOLLOWING [facility] CLINICS [facility] [address] [facility] [address] [facility] [facility] [address] [facility] [address] [facility] [address] [facility]. [facility] [address]. Call 911 or go to the nearest emergency room if experiencing loss of consciousness, dizziness, chest pain, shortness of breath, vomiting/abdominal pain, speech difficulties, motor weakness or any unusual symptoms. Primary Care Provider Not On Staff Doctor Pending Labs Laboratory Tests Test 04/16/19 10:38 04/16/19 11:08 04/16/19 14:09 04/16/19 14:38 Hemoglobin A1c 9.7 % (0-5.9) Triglycerides 81 Level mg/dl (0-149) Cholesterol 166 Level mg/dl (100-200) LDL 111 mg/dl Cholesterol, Calculated HDL 39 Cholesterol mg/dl (30-78) Cholesterol/HDL 4.2 RATIO Ratio Vitamin D 33.7 1,25-Dihydroxy ng/ml (30-100) Thyroid 1.080 Stimulating MIU/L (0.465-4. Hormone (TSH) 680) Bedside 238 124 Glucose mg/dL (70-220) mg/dL (70-220) Creatine 51 Kinase IU/L (23-200) Creatine Kinase 0.5 Index Creatinine 0.26 Kinase MB ng/ml (0.0-2.4 (Mass) ) Troponin I < 0.012 ng/ml (0.000-0 .120) Test 04/16/19 16:44 04/16/19 20:28 04/16/19 23:56 04/17/19 05:08 Bedside 111 369 223 Glucose mg/dL (70-220) mg/dL (70-220) mg/dL (70-220) White Blood 4.4 Count 10^3/ul (4.8-1 0.8) Red Blood 4.48 Count 10^6/ul (4.70- 6.10) Hemoglobin 13.4 g/dl (14.0-18. 0) Hematocrit 40.6 % (42.0-52.0) Mean 90.6 Corpuscular fl (82.0-101.0 Volume ) Mean 29.9 Corpuscular pg (29.0-33.0) Hemoglobin Mean 33.0 Corpuscular g/dl (32.0-37. Hemoglobin Conc 0) ent Red Cell 12.6 Distribution % (11.5-14.5) Width Platelet Count 204 10^3/UL (140-4 15) Mean Platelet 11.1 Volume fl (7.4-10.4) Immature 0.500 Granulocytes % % (0.001-0.429 ) Neutrophils % 50.6 % (39.0-77.0) Lymphocytes % 40.7 % (15.0-51.0) Monocytes % 6.8 % (0.0-11.0) Eosinophils % 0.9 % (0.0-7.0) Basophils % 0.5 % (0.0-2.0) Nucleated Red 0.0 Blood Cells % /100WBC (0.0-0 .0) Immature 0.020 Granulocytes # 10^3/ul (0.0-0 .031) Neutrophils # 2.2 10^3/ul (1.6-7 .5) Lymphocytes # 1.8 10^3/ul (0.8-2 .9) Monocytes # 0.3 10^3/ul (0.3-0 .9) Eosinophils # 0.0 10^3/ul (0.0-0 .5) Basophils # 0.0 10^3/ul (0.0-0 .1) Nucleated Red 0.0 Blood Cells # 10^3/ul (0.0-0 .0) Sodium Level 134 mmol/L (135-14 4) Potassium 4.3 Level mmol/L (3.5-5. 1) Chloride Level 101 mmol/L (97-110 ) Carbon Dioxide 29 Level mmol/L (21-31) Anion Gap 4 (5-13) Blood Urea 15 Nitrogen mg/dl (7-20) Creatinine 0.90 mg/dl (0.61-1. 24) Est Glomerular > 60 Filtrat mL/min (>60) Rate mL/min Glucose Level 269 mg/dl (70-220) Calcium Level 9.2 mg/dl (8.4-10. 2) Phosphorus 4.0 Level mg/dl (2.5-4.9 ) Magnesium 1.9 Level mg/dl (1.7-2.5 ) Total 0.3 Bilirubin mg/dl (0.2-1.3 ) Direct 0.00 Bilirubin mg/dl (0.00-0. 20) Indirect 0.3 Bilirubin mg/dl (0-1.1) Aspartate Amino 22 Transf (AST/SGO IU/L (15-46) T) Alanine 26 Aminotransferas IU/L (13-69) e (ALT/SGPT) Alkaline 84 Phosphatase IU/L (42-121) Total Protein 6.5 g/dl (6.1-8.1) Albumin 3.6 g/dl (3.3-4.9) Globulin 2.90 g/dl (1.3-3.2) Albumin/Globuli 1.24 n Ratio Test 04/17/19 07:43 Bedside 283 Glucose mg/dL (70-220) OMAIRA MCNEAL V. BUSINESS INTELLIGENCE MANAGER Apr 17, 2019 09:19
[2019-04-17 10:41] VITALS: BP 124/74; PULSE 69; RESP 22
== END 2019-04-17 10:55 | disposition home or self-care (01) ==
LOC: E/R 06:55 → 6WM 08:17 → CANRESERV 12:43
PROVIDERS: ADMIT Internal Medicine; ATTEND Internal Medicine
DX: R07.9 Chest pain, unspecified (principal); I10 Essential (primary) hypertension; E11.9 Type 2 diabetes mellitus without complications; E78.00 Pure hypercholesterolemia, unspecified; D64.9 Anemia, unspecified; E78.5 Hyperlipidemia, unspecified; Z79.82 Long term (current) use of aspirin; Z79.4 Long term (current) use of insulin
CPT/HCPCS: 36415; 71045; 78452; 80053; 80061; 82306; 82550; 82553; 82607; 82652; 82962; 83036; 83735; 84100; 84443; 84484; 85025; 93005; 93017; 93306; A9500; A9505; J1815; J2785; Q9967; Z7500; Z7502; Z7610; G0378